=== PATIENT | female | born 1940 | race Caucasian/White ===

== ENCOUNTER 2023-11-14 10:15 | Emergency (ER) | payer OTHER ==
[~2023-11-14] VITALS: Ht 152.4 cm; Wt 65.3 kg
[2023-11-14 10:23] VITALS: BP 101/49; PULSE 65; RESP 18; TEMP 96.7; O2SAT 98
[2023-11-14 11:00] VITALS: O2SAT 98
[2023-11-14] MEDS ORDERED: KETOROLAC 60 MG/2 ML VIAL IM ONE (11:45)
[2023-11-14 11:46] VITALS: O2SAT 98
[2023-11-14] MEDS ORDERED: IBUP-2213 PO (11:53)
[2023-11-14] MEDS ORDERED: OMEP40EC23 PO (11:53)
[2023-11-14 12:17] VITALS: BP 113/80; PULSE 68; RESP 12; TEMP 98.2
== END 2023-11-14 12:17 | disposition home or self-care (01) ==
LOC: MED 10:15
DX: R10.13 Epigastric pain (principal); E11.9 Type 2 diabetes mellitus without complications; I10 Essential (primary) hypertension; Z90.49 Acquired absence of other specified parts of digestive tract; Z88.5 Allergy status to narcotic agent
CPT/HCPCS: 93005; 96372; 99283; J1885